=== PATIENT | male | born 1985 | race Caucasian/White ===

== ENCOUNTER 2016-08-09 15:17 | Emergency (ER) | payer OTHER ==
[~2016-08-09] VITALS: Ht 190.5 cm; Wt 90.9 kg
[2016-08-09 15:33] VITALS: BP 159/93; PULSE 86; RESP 20; O2SAT 99
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
[2016-08-09 17:59] VITALS: BP 142/83; PULSE 77; RESP 15; O2SAT 99
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
[2016-08-09] MEDS ORDERED: HYDROcodone-APAP 5-325 mg Tablet PO ONE (18:55)
[2016-08-09 19:16] VITALS: BP 112/68; PULSE 58; RESP 16; O2SAT 96
== END 2016-08-09 19:16 | disposition home or self-care (01) ==
LOC: SED 15:17
DX: S06.0X0A Concussion without loss of consciousness, initial encounter (principal); W22.8XXA Striking against or struck by other objects, initial encounter; Y93.89 Activity, other specified; Y92.89 Other specified places as the place of occurrence of the external cause; Y99.8 Other external cause status